=== PATIENT | male | born 1995 | race Caucasian/White ===

== ENCOUNTER 2021-06-26 10:57 | Emergency (ER) | payer MEDICAID ==
[~2021-06-26] VITALS: Ht 160 cm; Wt 59.0 kg
[2021-06-26 11:48] LABS: BASOPHILS % 0.6 % (0.0-2.0); HEMATOCRIT. 45.7 % (42.0-52.0); LYMPHOCYTES % 7.9 % (20.0-50.0); MEAN CORPUSCULAR HEMOGLOBIN 30.3 pg (28.0-32.0); MEAN CORPUSCULAR VOLUME 86.6 fL (80.0-94.0); MEAN PLATELET VOLUME 8.5 fl (7.4-10.4); MONOCYTES % 6.2 % (2.0-8.0); NEUTROPHILS % 85.3 % (40.0-76.0); PLATELET 272 x1000/uL (130-400); RED BLOOD CELL COUNT 5.28 mill/uL (4.7-6.1); RED CELL DISTRIBUTION WIDTH 13.2 % (11.6-14.6)
[2021-06-26 11:50] LABS: CLARITY URINE CLOUDY (CLEAR); COLOR URINE YELLOW (YELLOW); KETONES URINE 2+ (NEGATIVE); LEUKOCYTE ESTERASE URINE NEGATIVE (NEGATIVE); NITRITE URINE NEGATIVE (NEGATIVE); OCCULT BLOOD URINE NEGATIVE (NEGATIVE); PH URINE 7.5 (4.5-8.0); PROTEIN URINE NEGATIVE (NEGATIVE); SPECIFIC GRAVITY URINE 1.021 (1.005-1.030)
[2021-06-26 11:52] LABS: CHLORIDE 110 mEq/L (98-107)
[2021-06-26 11:56] LABS: ETHANOL BLOOD < 10 mg/dL
[2021-06-26 12:07] LABS: METHADONE URINE SCREEN NEGATIVE (NEGATIVE); OPIATES URINE SCREEN NEGATIVE (NEGATIVE); PHENCYCLIDINE URINE SCREEN NEGATIVE (NEGATIVE)
[2021-06-26 12:08] LABS: *AMPHETAMINES SCREEN URINE NEGATIVE (NEGATIVE); *BARBITURATES SCREEN URINE NEGATIVE (NEGATIVE); *BENZODIAZEPINES SCREEN URINE NEGATIVE (NEGATIVE); *COCAINE SCREEN URINE NEGATIVE (NEGATIVE); CANNABINOID URINE SCREEN NEGATIVE (NEGATIVE)
[2021-06-26] MEDS ORDERED: LORAZEPAM 2MG/ML CPJ IV ONE (15:15)
[2021-06-26] MEDS ORDERED: DIPHENHYDRAMINE 50MG/ML VIAL IV ONE (15:15)
[2021-06-26] MEDS ORDERED: ARIPIPRAZOLE 5MG TABLET PO ONE (21:00)
[2021-06-27] MEDS: OLANZAPINE 5MG TABLET PO PRN ×2 (02:45→23:54)
[2021-06-27] MEDS: LORAZEPAM 1MG TABLET PO PRN ×3 (02:45→23:54)
[2021-06-28] MEDS ORDERED: ARIPIPRAZOLE 5MG TABLET PO SCH (09:00)
[2021-06-28] MEDS: LORAZEPAM 1MG TABLET PO PRN (10:27)
[2021-06-28] MEDS ORDERED: ABIL5 PO (11:03)
[2021-06-28 13:00] VITALS: BP 126/72
== END 2021-06-28 14:38 | disposition home or self-care (01) ==
LOC: ER 11:05
DX: R45.6 Violent behavior (principal); F32.9 Major depressive disorder, single episode, unspecified; R45.1 Restlessness and agitation
CPT/HCPCS: 36415; 80053; 80305; 80320; 81003; 85025; 96374; 96375; 99285; J1200; J2060; G0480